=== PATIENT | female | born 1975 ===

== ENCOUNTER 2017-04-13 05:48 | Day surgery (SDC) | payer OTHER ==
[~2017-04-13] VITALS: Ht 165.1 cm; Wt 83.5 kg
[2017-04-13] MEDS ORDERED: ONDANSETRON 4 MG/2 ML VIAL ONE (08:15)
[2017-04-13] MEDS ORDERED: DEXAMETHASONE 4 MG/ML VIAL ONE (08:15)
[2017-04-13] MEDS ORDERED: SEVOFLURANE 250 ML BTL INH ONE (08:15)
[2017-04-13] MEDS ORDERED: PROPOFOL 200 MG/20 ML VIAL IV ONE ×2 (08:15)
[2017-04-13] MEDS ORDERED: MIDAZOLAM 2 MG/2 ML VIAL ONE (08:20)
[2017-04-13] MEDS ORDERED: MEPERIDINE 50 MG/ML SYR ONE (08:20)
[2017-04-13] MEDS ORDERED: fentaNYL 0.05 MG/ML VIAL ONE (08:20)
[2017-04-13] MEDS ORDERED: LACTATED RINGERS 1,000 ML IV SCH (08:31)
[2017-04-13] MEDS ORDERED: HYDROmorphone 1 MG/ML AMP IVP PRN (08:35)
[2017-04-13] MEDS ORDERED: MEPERIDINE 25 MG/ML SYR IVP PRN (08:35)
[2017-04-13] MEDS ORDERED: ONDANSETRON 4 MG/2 ML VIAL IVP PRN ×2 (08:35→09:00)
[2017-04-13] MEDS ORDERED: diphenhydrAMINE 50 MG/ML VIAL IVP PRN (08:35)
[2017-04-13] MEDS ORDERED: MORPHINE SULFATE 4 MG/ML SYR IM/IVP PRN (09:00)
[2017-04-13] MEDS ORDERED: IBUPROFEN 800 MG TAB PO PRN (09:00)
[2017-04-13] MEDS ORDERED: ACETAMINOPHEN/CODEINE 300/30MG 1 TAB PO PRN (09:00)
== END 2017-04-13 10:15 | disposition home or self-care (01) ==
LOC: MDS 05:48 → MMU 05:59 → MDS 10:15
PROVIDERS: ATTEND Obstetrics & Gynecology
DX: N87.9 Dysplasia of cervix uteri, unspecified (principal)
CPT/HCPCS: 57522; J2175; J2250; J3010; J7120; 93005; J1100; J2405; J2704; J7030